=== PATIENT | female | born 2005 | race Caucasian/White ===

== ENCOUNTER 2023-05-20 19:16 | Emergency (ER) | payer OTHER, BC ==
[2023-05-20] MEDS ORDERED: Ibuprofen 400 MG Tab PO ONE (20:49)
[2023-05-20] MEDS ORDERED: Acetaminophen 325 MG Tab PO ONE (20:49)
[2023-05-20] MEDS ORDERED: Diphtheria,Pertussis(Acell),Tetanus Vaccine 0.5 ML Syringe IM ONE (20:50)
[2023-05-20] MEDS ORDERED: Lidocaine/Epineph/Tetracaine 3 ML Syringe TOP ONE (20:50)
[2023-05-20] MEDS ORDERED: Bacitracin Oint 1 GM U/D Packet TOP ONE (21:41)
[2023-05-20] MEDS ORDERED: Bacitracin Oint 28.35 GM Tube TOP SCH (22:00)
== END 2023-05-20 23:50 | disposition home or self-care (01) ==
LOC: MW.ED 19:16
DX: S01.111A Laceration without foreign body of right eyelid and periocular area, initial encounter (principal); Z23 Encounter for immunization; W22.8XXA Striking against or struck by other objects, initial encounter
CPT/HCPCS: 12011; 90471; 90715; 99282; A9270; 99283